=== PATIENT | female | born 1995 | race Two or more races ===

== ENCOUNTER 2019-10-01 20:12 | Emergency (ER) | payer SELFPAY ==
[~2019-10-01] VITALS: Ht 157.5 cm; Wt 66.0 kg
[2019-10-02 00:25] VITALS: BP 95/61
== END 2019-10-02 05:14 | disposition left against medical advice (07) ==
LOC: ER 20:12
DX: R07.89 Other chest pain (principal); Z53.21 Procedure and treatment not carried out due to patient leaving prior to being seen by health care provider
CPT/HCPCS: 93005

== ENCOUNTER 2024-04-07 20:12 | Emergency (ER) | payer OTHER ==
[~2024-04-07] VITALS: Ht 165.1 cm; Wt 81.0 kg
[2024-04-07 20:21] VITALS: O2SAT 98
[2024-04-07 21:04] LABS: BASOPHILS % 0.1 % (0.0-2.0); EOSINOPHILS % 0.2 % (0.0-5.0); HEMATOCRIT. 39.2 % (36.0-48.0); HEMOGLOBIN. 13.2 g/dL (12.0-16.0); LYMPHOCYTES % 8.5 % (20.0-50.0); MEAN CORPUSCULAR HEMOGLOBIN 31.1 pg (28.0-32.0); MEAN CORPUSCULAR HGB CONC 33.8 g/dL (31.0-37.0); MONOCYTES % 3.2 % (2.0-8.0); PLATELET 198 x1000/uL (130-400); RED BLOOD CELL COUNT 4.26 mill/uL (4.2-5.4); RED CELL DISTRIBUTION WIDTH 13.2 % (11.6-14.6); WHITE BLOOD COUNT 10.3 x1000/uL (4.5-11.0)
[2024-04-07 21:09] LABS: CHLORIDE 105 mEq/L (98-107); POTASSIUM 3.2 mEq/L (3.5-5.1); SODIUM 137 mEq/L (136-145)
[2024-04-07 21:10] LABS: CALCIUM 9.4 mg/dL (8.7-10.4); CARBON DIOXIDE 23 mEq/L (21-32)
[2024-04-07 21:15] LABS: CREATININE 0.8 mg/dL (0.6-1.0); GLUCOSE 108 mg/dL (70-105); UREA NITROGEN BLOOD 10 mg/dL (9-23)
[2024-04-07 21:17] LABS: ALANINE AMINOTRANSFERASE 16 IU/L (10-49); ALBUMIN 4.4 g/dL (3.2-4.8); ASPARTATE AMINOTRANSFERASE 16 IU/L (<34); BILIRUBIN TOTAL 1.7 mg/dL (0.1-1.0); PROTEIN TOTAL 6.9 g/dL (6.0-8.3)
[2024-04-07] MEDS: POTASSIUM CHLORIDE 20MEQ/PACKET PO ONE (22:23)
[2024-04-07 23:21] VITALS: BP 111/77; PULSE 89; RESP 16; TEMP 98
== END 2024-04-07 23:23 | disposition home or self-care (01) ==
LOC: ER 20:12
DX: R55 Syncope and collapse (principal); Z98.890 Other specified postprocedural states
CPT/HCPCS: 36415; 80053; 81025; 85025; 99283